=== PATIENT | female | born 1935 | race Caucasian/White ===

== ENCOUNTER 2021-02-10 08:54 | Emergency (ER) | payer MEDICARE ==
[~2021-02-10] VITALS: Ht 170.2 cm; Wt 77.3 kg
--- NOTE | 2021-02-10 09:14 | NUR ---
THIS NURSE PALPATED BILAT KNEES AND HIPS WHILE PATIENT DENIED ANY PAIN TO THESE AREAS. THERE IS TENDERNESS AND SLIGHT BRUISING TO RIGHT TEMPORAL AREA OF HEAD WHERE PATIENT STATES SHE HITHER HEAD ON THE WALL DURING FALL. PATIENT IS UNABLE TO ANSWER SPECIFIC QUESTIONS OR RECALL EVENTS WITH DESCRIPTION. A/0 X 1
[2021-02-10 11:31] VITALS: BP 160/67
== END 2021-02-10 11:34 | disposition home or self-care (01) ==
LOC: ER 08:55
DX: S09.90XA Unspecified injury of head, initial encounter (principal); G30.9 Alzheimer's disease, unspecified; F02.80 Dementia in other diseases classified elsewhere, unspecified severity, without behavioral disturbance, psychotic disturbance, mood disturbance, and anxiety; W19.XXXA Unspecified fall, initial encounter; Y93.89 Activity, other specified; Y92.89 Other specified places as the place of occurrence of the external cause; Y99.8 Other external cause status
CPT/HCPCS: 70450; 70486; 99285

== ENCOUNTER 2021-02-28 16:02 | Emergency (ER) | payer MEDICARE ==
[~2021-02-28] VITALS: Ht 165.1 cm; Wt 84.1 kg
[2021-02-28 17:31] VITALS: BP 188/73
--- NOTE | 2021-02-28 18:46 | NUR ---
PT CONTINES TO ATTEMPT TO [facility]. DIFFICULT TO REDIRECT. CALLING [facility] FOR TRANSPORT PER LUCIEN STERLING.
== END 2021-02-28 20:06 | disposition home or self-care (01) ==
LOC: ER 16:03
DX: S16.1XXA Strain of muscle, fascia and tendon at neck level, initial encounter (principal); S09.90XA Unspecified injury of head, initial encounter; F03.90 Unspecified dementia, unspecified severity, without behavioral disturbance, psychotic disturbance, mood disturbance, and anxiety; W19.XXXA Unspecified fall, initial encounter; Y93.89 Activity, other specified; Y92.89 Other specified places as the place of occurrence of the external cause; Y99.8 Other external cause status
CPT/HCPCS: 70450; 72125; 72128; 72131; 99285

== ENCOUNTER 2021-04-17 09:03 | Inpatient (IN) | payer MEDICARE ==
[2021-04-17] VITALS (12 sets, daily range): BP systolic 134–176; BP diastolic 64–94
[~2021-04-17] VITALS: Ht 165.1 cm; Wt 75.0 kg
--- NOTE | 2021-04-17 09:12 | NUR ---
Dr. Galloway at bedside. Patient is DNR comfort care. Orders not to call stroke alert.
[2021-04-17 09:27] LABS: BASOPHILS # (AUTO) 0.1 X10'3 (0-0.2); BASOPHILS % (AUTO) 1.1 % (0-1); EOSINOPHILS # (AUTO) 0.2 X10'3 (0-0.9); EOSINOPHILS % (AUTO) 2.1 % (0-6); HEMATOCRIT 42.7 % (35.0-45.0); HEMOGLOBIN 14.1 g/dl (12.0-16.0); LYMPHOCYTES % (AUTO) 22.5 % (21-51); MEAN CORPUSCULAR HEMOGLOBIN 28.9 PG (27.0-31.0); MEAN CORPUSCULAR VOLUME 87.8 FL (78-98); MONOCYTES # (AUTO) 1.3 X10'3 (0-0.9); MONOCYTES % (AUTO) 14.2 % (2-12); NEUTROPHILS # (AUTO) 5.5 X10'3 (1.8-7.7); NEUTROPHILS % (AUTO) 60.1 % (42-75); PLATELET COUNT 191 X10'3 (140-440); RED BLOOD COUNT 4.86 X10'6 (4.20-5.60); RED CELL DISTRIBUTION WIDTH 14.5 % (11.5-14.5); WHITE BLOOD COUNT 9.1 X10'3 (4.5-11.0)
[2021-04-17 09:41] LABS: PARTIAL THROMBOPLASTIN TIME 31 SECONDS (22-32)
[2021-04-17 09:49] LABS: ALANINE AMINOTRANSFERASE 15 U/L (12-78); ALBUMIN 3.5 G/DL (3.4-5.0); ALBUMIN/GLOBULIN RATIO 0.9 (1.1-1.5); ALKALINE PHOSPHATASE 105 IU/L (46-116); ASPARTATE AMINO TRANSFERASE 12 U/L (10-37); BILIRUBIN,TOTAL 0.8 MG/DL (0.1-1.0); BLOOD UREA NITROGEN 10 MG/DL (7-18); BUN/CREATININE RATIO 11.2 (6.6-38.0); CALCIUM 9.3 MG/DL (8.5-10.1); CREATININE 0.89 MG/DL (0.40-0.90); GLUCOSE 102 MG/DL (70-104); TOTAL CARBON DIOXIDE 23.8 MMOL/L (24-32); TOTAL PROTEIN 7.4 G/DL (6.4-8.2); eGFR 60 ML/MIN
[2021-04-17] MEDS ORDERED: iohexol 350MG/ML 100ml bottle IV ONE (09:53)
--- NOTE | 2021-04-17 09:54 | NUR ---
Son (rosie) at bedside. States patient would want treatment for potential stroke. Dr. Galloway at bedside. CTA ordered, changed to stat and CT notified. Stroke RN at bedside and aware.
--- NOTE | 2021-04-17 10:20 | NUR ---
Dr. Galloway, son, and stroke RN at bedside. Discussion about plan of care with son. Son understands patient's situation and would like to move forward with stroke treatment. Level 1 stroke alert called.
[2021-04-17 10:42] LABS: ANION GAP 8 (8-16); CHLORIDE 105 MMOL/L (99-107); POTASSIUM 4.1 MMOL/L (3.5-5.1); SODIUM 137 MMOL/L (135-145)
[2021-04-17] MEDS ORDERED: normal saline 50ml IV soln 50 ML IV SCH (10:50)
[2021-04-17] MEDS ORDERED: alteplase 100MG inj. 100 ML IV ONE (10:50)
[2021-04-17 13:06] LABS: HEMOGLOBIN A1C 5.8 % (4.5-6.2)
[2021-04-17] MEDS ORDERED: SERT50TA PO (13:18)
[2021-04-17] MEDS ORDERED: DONE10TA7 PO (13:18)
[2021-04-17] MEDS ORDERED: BISA10SU11 RC (13:18)
[2021-04-17] MEDS ORDERED: FURO-150 PO (13:18)
[2021-04-17] MEDS ORDERED: LEVO75TA PO (13:18)
[2021-04-17] MEDS ORDERED: GLYC-23 RC (13:18)
[2021-04-17] MEDS ORDERED: IBUP-1984 PO (13:18)
[2021-04-17] MEDS ORDERED: QUET50TA24 PO (13:18)
[2021-04-17] MEDS ORDERED: LORA-269 PO (13:18)
[2021-04-17] MEDS ORDERED: CYAN-51 PO (13:18)
[2021-04-17] MEDS ORDERED: CHOL100025 PO (13:18)
[2021-04-17] MEDS ORDERED: METO-539 PO (13:18)
[2021-04-17] MEDS ORDERED: MAGN400O6 PO (13:18)
--- NOTE | 2021-04-17 13:45 | NUR ---
First interaction with pt, neuro check with stroke nurse done at this time. Son in room, continue monitoring closely. Pt void 300cc urine
[2021-04-17 13:55] LABS: CLARITY,URINE CLEAR (Clear); COLOR,URINE YELLOW (Yellow); GLUCOSE, URINE NEGATIVE (Neg); KETONES,URINE NEGATIVE (Neg); LEUKOCYTE ESTERASE ,URINE NEGATIVE (Neg); NITRITES, URINE NEGATIVE (Neg); OCCULT BLOOD,URINE TRACE-INTACT (Neg); PROTEIN,URINE 30 mg/dl (Neg); UA COLLECTION TYPE VOIDED
[2021-04-17] MEDS: normal saline 1000ml 1,000 ML IV SCH ×2 (13:56→15:05)
[2021-04-17 14:01] LABS: BACTERIA,URINE 1+ /HPF (Neg); MUCUS STRANDS NONE SEEN /LPF (Neg); RBC,URINE NONE SEEN /HPF (0-2); SQUAMOUS EPITHELIAL CELL,UR MODERATE /LPF (FEW)
[2021-04-17] MEDS ORDERED: magnesium hydroxide 30ml (MOM) UD suspension PO PRN (14:20)
[2021-04-17] MEDS ORDERED: ipratropium/albuterol 3ml nebule NEB PRN (14:20)
[2021-04-17] MEDS ORDERED: morphine 4 MG/ML inj SYRINge IV PRN (14:20)
[2021-04-17] MEDS ORDERED: LIDOcaine 2% 10ml TOPICAL JELLY (Urojet) TP ONE (14:20)
[2021-04-17] MEDS ORDERED: morphine 2 MG/ML inj. syringe IV PRN (14:20)
[2021-04-17] MEDS ORDERED: acetaminophen 325mg tablet PO PRN (14:20)
[2021-04-17] MEDS ORDERED: ondansetron/PF 4mg/2ml inj IV PRN (14:20)
--- NOTE | 2021-04-17 14:42 | NUR ---
Pt was able to void earlier, refused placement of a Ortiz at this time, Continue monitoring her output
--- NOTE | 2021-04-17 16:30 | NUR ---
PT INCREASED AGITATION ASKING "HELP HELP" THEN UNABLE TO VOID. TURNER PLACED AND DRAIN 500ML. WILL PT'S SON CALLED AND WILL COME SEE MOTHER AND HELP STAY WITH MOTHER.
--- NOTE | 2021-04-17 18:31 | NUR ---
Son at bedside, pt resting and calm. Continue monitoring closely
--- NOTE | 2021-04-17 19:00 | NUR ---
[employer] called and representant explains we have to call ack in the morning for MRI compatibility [phone] Addendum: 04/18/21 at 0130 by JUSTINE [employer] called and representant explains we have to call ack in the morning for MRI compatibility [phone] @ 7am central time
--- NOTE | 2021-04-18 01:10 | NUR ---
Hasmukh Paez number:[phone]
--- NOTE | 2021-04-18 01:19 | NUR ---
Julieta Stroke RN number: [phone]
--- NOTE | 2021-04-18 01:20 | NUR ---
Per Krish ceballos, ICU refused pt. Charge Nurse Mary notified and advice to call Md Hospitalist. Md Aguiar called conserning ICU bed waiting for pt explained he is not in charge of downgrading pt level. Charge Nurse notified and ICU md will be contact.
--- NOTE | 2021-04-18 01:26 | NUR ---
ICU Md Valdivia comfirmed pt still under ICU due to less than 24hr TPA administration. Continue monitoring in ED at this time.
--- NOTE | 2021-04-18 01:30 | NUR ---
Gear Keeper Shea states pt must remain an ICU patient due to Tpa having been administered within the past 24 hours
[2021-04-18] MEDS: normal saline 1000ml 1,000 ML IV SCH ×5 (02:29→20:41)
--- NOTE | 2021-04-18 05:46 | NUR ---
[employer] states pt's. implanted device NOT compatible with MRI exam
[2021-04-18 08:07] LABS: BASOPHILS # (AUTO) 0.1 X10'3 (0-0.2); EOSINOPHILS # (AUTO) 0.1 X10'3 (0-0.9); EOSINOPHILS % (AUTO) 1.1 % (0-6); HEMATOCRIT 42.4 % (35.0-45.0); LYMPHOCYTES # (AUTO) 1.2 X10'3 (1.1-4.8); LYMPHOCYTES % (AUTO) 11.8 % (21-51); MEAN CORPUSCULAR HEMOGLOBIN 29.1 PG (27.0-31.0); MEAN CORPUSCULAR HGB CONC 33.1 g/dL (33.0-36.5); MEAN CORPUSCULAR VOLUME 87.8 FL (78-98); MEAN PLATELET VOLUME 9.1 FL (7.4-10.4); MONOCYTES % (AUTO) 9.9 % (2-12); NEUTROPHILS # (AUTO) 7.8 X10'3 (1.8-7.7); NEUTROPHILS % (AUTO) 76.2 % (42-75); PLATELET COUNT 184 X10'3 (140-440); RED BLOOD COUNT 4.83 X10'6 (4.20-5.60); WHITE BLOOD COUNT 10.3 X10'3 (4.5-11.0)
[2021-04-18 08:24] LABS: ALBUMIN 3.4 G/DL (3.4-5.0); ANION GAP 11 (8-16); BLOOD UREA NITROGEN 11 MG/DL (7-18); BUN/CREATININE RATIO 13.1 (6.6-38.0); CHLORIDE 103 MMOL/L (99-107); CHOL/HDL RATIO 11.2 (0.00-4.99); CHOLESTEROL 325 MG/DL (0-200); CREATININE 0.84 MG/DL (0.40-0.90); GLUCOSE 90 MG/DL (70-104); HDL CHOLESTEROL 29 MG/DL (35-60); LDL CHOLESTEROL 264 MG/DL (50-100); POTASSIUM 3.9 MMOL/L (3.5-5.1); SODIUM 139 MMOL/L (135-145); TRIGLYCERIDES 113 MG/DL (20-135); eGFR 64 ML/MIN
--- NOTE | 2021-04-18 10:10 | NUR ---
VERBAL ORDER FOR CT HEAD POST STROKE PT IN NOT ABLE TO HAVE MRI D/T PACEMAKER ORDER BY DR ACE
--- NOTE | 2021-04-18 10:36 | NUR ---
Stroke Nurse evaluated patient at bedside. Teleneurology paged for re-evaluation post TPA. CT of head has been done.
--- NOTE | 2021-04-18 10:38 | NUR ---
ORDER FOR SOC PLACED FOR POST STROKE RECOMENDATIONS. REQUESTED BY JAVY THE STROKE NURSE
--- NOTE | 2021-04-18 10:45 | NUR ---
Discuss recommendation for secondary prevention with Dr Sifuentes, note to follow patient can go up to the stroke unit after 24 hours post tpa which is at [address] Tolliver notified.
[2021-04-18] MEDS: levoTHYROXINE 75mcg tablet PO SCH (11:15)
[2021-04-18] MEDS: metoprolol succinate 25mg (24-HOUR) SR. Tablet PO SCH ×2 (11:15→20:45)
--- NOTE | 2021-04-18 11:24 | NUR ---
PHYSICAL THERAPY AT BEDSIDE
--- NOTE | 2021-04-18 11:32 | NUR ---
PT AWAKE FROM NAP. WILL HOLD MEDS UNTIL PT IS AWAKE ENOUGH TO GIVE MEDS.
--- NOTE | 2021-04-18 12:05 | NUR ---
Bruising from blood pressure cuff observed on left arm. blood pressure cuff switched to right forearm.
--- NOTE | 2021-04-18 12:12 | NUR ---
PER NSG SUP PAGE TO DR GARBER RE: PT DOWNGRADED FROM ICU AND INQUIRING ABOUT HOSPITAL ADMIT ORDERS
--- NOTE | 2021-04-18 12:59 | NUR ---
2ND PAGE TO JCARLOS RE ADMIT
--- NOTE | 2021-04-18 14:47 | NUR ---
SCD'S PLACE ON PATIENT AT THIS TIME. Addendum: 04/18/21 at 1448 by Julieta Cabrales RN Amended: Links added.
[2021-04-18] MEDS: aspirin 81mg tab.chew PO SCH (17:29)
[2021-04-18] MEDS: clopidogrel 75mg tablet PO SCH (17:29)
--- NOTE | 2021-04-18 19:20 | NUR ---
Received report from Herman LAKHANI from ED. Patient brought up to the floor on a hospital bed. Bed placed in locked & low position. Call light placed within reach.
[2021-04-18 19:25] VITALS: BP 182/73
[2021-04-18 22:00] VITALS: BP 128/82
[2021-04-19 02:00] VITALS: BP 159/76
--- NOTE | 2021-04-19 02:13 | NUR ---
Patient started coughing and went into room and patient was gurgling and started vomiting. Patient up at 45 degrees. Placed patient at 90 degrees and attempted to suction but patient biting the suction. Patient's oxygen saturation at 99% RA. Will make NPO and allow speech therapy to reevaluate patient. Patient also pulled out Ortiz catheter with balloon intact. Will monitor for a void.
--- NOTE | 2021-04-19 05:41 | NUR ---
Patient has not voided. Bladder scanned patient and results showed 35mls. Will encourage patient to void.
[2021-04-19 06:00] VITALS: BP 160/86
--- NOTE | 2021-04-19 06:44 | NUR ---
Problems reprioritized. Patient report given, questions answered & plan of care reviewed with Kaitlin LAKHANI.
[2021-04-19 07:00] LABS: BASOPHILS # (AUTO) 0.1 X10'3 (0-0.2); EOSINOPHILS % (AUTO) 0.3 % (0-6); HEMATOCRIT 42.3 % (35.0-45.0); LYMPHOCYTES # (AUTO) 1.6 X10'3 (1.1-4.8); LYMPHOCYTES % (AUTO) 13.5 % (21-51); MEAN CORPUSCULAR HEMOGLOBIN 28.4 PG (27.0-31.0); MEAN CORPUSCULAR HGB CONC 33.2 g/dL (33.0-36.5); MEAN CORPUSCULAR VOLUME 85.7 FL (78-98); MEAN PLATELET VOLUME 9.3 FL (7.4-10.4); MONOCYTES # (AUTO) 1.1 X10'3 (0-0.9); MONOCYTES % (AUTO) 9.5 % (2-12); NEUTROPHILS # (AUTO) 9.2 X10'3 (1.8-7.7); NEUTROPHILS % (AUTO) 75.7 % (42-75); PLATELET COUNT 233 X10'3 (140-440); RED BLOOD COUNT 4.93 X10'6 (4.20-5.60); RED CELL DISTRIBUTION WIDTH 14.3 % (11.5-14.5); WHITE BLOOD COUNT 12.1 X10'3 (4.5-11.0)
[2021-04-19 07:10] LABS: GLUCOSE 94 MG/DL (70-104); SODIUM 139 MMOL/L (135-145)
[2021-04-19 07:11] LABS: ALBUMIN 3.2 G/DL (3.4-5.0); ANION GAP 12 (8-16); BLOOD UREA NITROGEN 12 MG/DL (7-18); BUN/CREATININE RATIO 13.5 (6.6-38.0); CALCIUM 8.7 MG/DL (8.5-10.1); CHLORIDE 105 MMOL/L (99-107); CREATININE 0.89 MG/DL (0.40-0.90); POTASSIUM 3.8 MMOL/L (3.5-5.1); TOTAL CARBON DIOXIDE 22.4 MMOL/L (24-32); eGFR 60 ML/MIN
[2021-04-19] MEDS: clopidogrel 75mg tablet PO SCH (08:00)
[2021-04-19] MEDS: atorvastatin 20mg tablet PO SCH (08:00)
[2021-04-19] MEDS: metoprolol succinate 25mg (24-HOUR) SR. Tablet PO SCH ×2 (08:00→20:29)
[2021-04-19] MEDS: levoTHYROXINE 75mcg tablet PO SCH (08:00)
--- NOTE | 2021-04-19 08:04 | NUR ---
PAGER ID: [phone] MESSAGE: Kaitlin Oliveros9 marisol Bond in [id number]- vomiting this am, concern for aspiration. CXR? ST made her NPO again. on asa, Plavix, Lipitor. Please advise, thanks Addendum: 04/19/21 at 0837 by Samantha Maguire RN Spoke to Dr Benton. He ordered CXR, respiratory eval, and rectal aspirin.
[2021-04-19] MEDS: aspirin 81mg tab.chew PO SCH (08:30)
[2021-04-19] MEDS ORDERED: aspirin 300mg supp.rect RC ONE (08:40)
--- NOTE | 2021-04-19 08:46 | NUR ---
Dean consult. No open wound per RN note. Pt seen by ST today, rec NPO. Pt on comfort care, will continue to follow. Rec: Bowel care per rx Addendum: 04/19/21 at [address] Amended: Links added.
[2021-04-19 10:00] VITALS: BP 156/73
[2021-04-19] MEDS: normal saline 1000ml 1,000 ML IV SCH ×2 (12:13→23:39)
--- NOTE | 2021-04-19 16:39 | NUR ---
call to [employer] to request interrogation of pacemaker. Per notes Neurologist recommended loop recorder to assess for poss afib. Addendum: 04/19/21 at 1648 by Samantha Maguire RN Kaitlin with [employer] will be here shortly to interrogate PM to assess for afib. Pt not on tele
--- NOTE | 2021-04-19 17:35 | NUR ---
[employer] rep states that she is unable to read pt's PM. Either it has been replaced by another device or it is not functioning. She ran a magnet over it and said that it changed the rate, therefore there must be a PM that is functioning, but it is not a [employer] device. She gave me the number to call [facility] and they also have no record of the PM.
--- NOTE | 2021-04-19 17:56 | NUR ---
pt is more alert. I sat her up in high fowlers and the pt was able to take small bites of pureed and swallow effectively (although it is very slow and delayed). Pt was able to take small sips thin liquids from the side of the cup with no apparent difficulty.
[2021-04-19 18:00] VITALS: BP 178/81
--- NOTE | 2021-04-19 18:21 | NUR ---
PAGER ID: [phone] MESSAGE: Kaitlin [id number] Mary Edward- neurologist recommended loop recorder, to look for afib, has PM that I cant interrogate, can we put on tele?
--- NOTE | 2021-04-19 18:30 | NUR ---
Patient in room ORTHO 4009. I have received report from Kaitlin LAKHANI and had the opportunity to ask questions and assume patient care.
[2021-04-19 22:00] VITALS: BP 188/80
[2021-04-20] MEDS ORDERED: hydrALAZINE 20mg/ml inj. IV PRN (00:25)
--- NOTE | 2021-04-20 00:25 | NUR ---
Called MD about higher BP's. Hydralazine ordered PRN for BP over 170/100 but patient does not meet requirements at this time. Will continue to monitor BP
[2021-04-20 02:00] VITALS: BP 184/75
--- NOTE | 2021-04-20 05:17 | NUR ---
Patient has not voided this shift, bladder scanner shows 360ml. Encouraging patient to sit on the bedpan.
[2021-04-20 06:00] VITALS: BP 176/73
--- NOTE | 2021-04-20 06:04 | NUR ---
Problems reprioritized. Patient report given, questions answered & plan of care reviewed with Nidia LAKHANI.
--- NOTE | 2021-04-20 06:29 | NUR ---
Patient in room ORTHO 4009. I have received report from Annamaria LAKHANI and had the opportunity to ask questions and assume patient care.
[2021-04-20 07:58] LABS: BASOPHILS # (AUTO) 0.1 X10'3 (0-0.2); BASOPHILS % (AUTO) 0.9 % (0-1); EOSINOPHILS # (AUTO) 0.2 X10'3 (0-0.9); EOSINOPHILS % (AUTO) 2.4 % (0-6); HEMOGLOBIN 13.2 g/dl (12.0-16.0); LYMPHOCYTES # (AUTO) 1.7 X10'3 (1.1-4.8); MEAN CORPUSCULAR HEMOGLOBIN 28.5 PG (27.0-31.0); MEAN CORPUSCULAR VOLUME 86.3 FL (78-98); MEAN PLATELET VOLUME 9.1 FL (7.4-10.4); MONOCYTES # (AUTO) 1.1 X10'3 (0-0.9); MONOCYTES % (AUTO) 11.7 % (2-12); NEUTROPHILS # (AUTO) 6.2 X10'3 (1.8-7.7); PLATELET COUNT 228 X10'3 (140-440); RED BLOOD COUNT 4.64 X10'6 (4.20-5.60); RED CELL DISTRIBUTION WIDTH 14.6 % (11.5-14.5); WHITE BLOOD COUNT 9.2 X10'3 (4.5-11.0)
[2021-04-20] MEDS: metoprolol succinate 25mg (24-HOUR) SR. Tablet PO SCH ×2 (08:05→19:37)
[2021-04-20] MEDS: clopidogrel 75mg tablet PO SCH (08:05)
[2021-04-20] MEDS: atorvastatin 20mg tablet PO SCH (08:06)
[2021-04-20] MEDS: aspirin 81mg tab.chew PO SCH (08:06)
[2021-04-20] MEDS: levoTHYROXINE 75mcg tablet PO SCH (08:06)
[2021-04-20 08:19] LABS: ALBUMIN 2.9 G/DL (3.4-5.0); ANION GAP 11 (8-16); BLOOD UREA NITROGEN 13 MG/DL (7-18); CALCIUM 8.6 MG/DL (8.5-10.1); CHLORIDE 107 MMOL/L (99-107); CREATININE 0.81 MG/DL (0.40-0.90); GLUCOSE 78 MG/DL (70-104); POTASSIUM 3.7 MMOL/L (3.5-5.1); SODIUM 142 MMOL/L (135-145); TOTAL CARBON DIOXIDE 24.2 MMOL/L (24-32); eGFR 67 ML/MIN
[2021-04-20] MEDS: normal saline 1000ml 1,000 ML IV SCH ×2 (09:00→13:29)
[2021-04-20 10:00] VITALS: BP 180/89
[2021-04-20] MEDS ORDERED: amLODIPine 5mg tablet PO ONE (10:50)
--- NOTE | 2021-04-20 15:31 | NUR ---
Pt transferred to commode 2 person assist five times this shift. Pt requires repeated coaching but does very well transferring. Pt is visibly frustrated with current health condition however nursing staff, MD, and family continue to encourage her. Patient has has poor nutrition today, 0% breakfast, 25% lunch. Will continue to reposition and encourage better nutrition.
[2021-04-20 18:00] VITALS: BP 112/76
--- NOTE | 2021-04-20 18:33 | NUR ---
Problems reprioritized. Patient report given, questions answered & plan of care reviewed with Annamaria LAKHANI.
--- NOTE | 2021-04-20 18:35 | NUR ---
Patient in room ORTHO 4009. I have received report from Nidia LAKHANI and had the opportunity to ask questions and assume patient care.
[2021-04-20 22:00] VITALS: BP 149/76
[2021-04-21] MEDS: normal saline 1000ml 1,000 ML IV SCH ×2 (01:34→15:27)
[2021-04-21 02:00] VITALS: BP 174/80
[2021-04-21 06:30] VITALS: BP 176/73
--- NOTE | 2021-04-21 06:47 | NUR ---
Problems reprioritized. Patient report given, questions answered & plan of care reviewed with Debby LAKHANI.
--- NOTE | 2021-04-21 07:45 | NUR ---
Notified Charge Nurse patient will need NIH completed by her this shift.
[2021-04-21] MEDS: amLODIPine 5mg tablet PO SCH (08:00)
[2021-04-21] MEDS: clopidogrel 75mg tablet PO SCH (08:00)
[2021-04-21] MEDS: levoTHYROXINE 75mcg tablet PO SCH (08:00)
[2021-04-21] MEDS: atorvastatin 20mg tablet PO SCH (08:00)
[2021-04-21] MEDS: metoprolol succinate 25mg (24-HOUR) SR. Tablet PO SCH ×3 (08:00→21:00)
[2021-04-21] MEDS: aspirin 81mg tab.chew PO SCH (08:30)
--- NOTE | 2021-04-21 08:52 | NUR ---
Patient refused all morning medications, encouraged and education completed with patient. Patient still states that she doesn't want to take the medications, she just wants this to be all over. Patient states that the doctor doesn't know what he is doing and wants this to be all over with.
[2021-04-21 10:00] VITALS: BP 162/80
[2021-04-21 11:18] LABS: ALBUMIN 3.2 G/DL (3.4-5.0); ANION GAP 13 (8-16); BLOOD UREA NITROGEN 9 MG/DL (7-18); BUN/CREATININE RATIO 12.9 (6.6-38.0); CALCIUM 8.7 MG/DL (8.5-10.1); CHLORIDE 104 MMOL/L (99-107); GLUCOSE 97 MG/DL (70-104); POTASSIUM 3.5 MMOL/L (3.5-5.1); SODIUM 139 MMOL/L (135-145); eGFR 79 ML/MIN
[2021-04-21 11:26] LABS: BASOPHILS # (AUTO) 0.1 X10'3 (0-0.2); BASOPHILS % (AUTO) 1.1 % (0-1); EOSINOPHILS # (AUTO) 0.1 X10'3 (0-0.9); EOSINOPHILS % (AUTO) 0.9 % (0-6); HEMATOCRIT 39.8 % (35.0-45.0); HEMOGLOBIN 13.1 g/dl (12.0-16.0); LYMPHOCYTES # (AUTO) 1.5 X10'3 (1.1-4.8); LYMPHOCYTES % (AUTO) 14.6 % (21-51); MEAN CORPUSCULAR HEMOGLOBIN 28.4 PG (27.0-31.0); MEAN CORPUSCULAR HGB CONC 32.9 g/dL (33.0-36.5); MEAN CORPUSCULAR VOLUME 86.4 FL (78-98); MEAN PLATELET VOLUME 9.3 FL (7.4-10.4); MONOCYTES # (AUTO) 1.1 X10'3 (0-0.9); MONOCYTES % (AUTO) 11.2 % (2-12); NEUTROPHILS # (AUTO) 7.3 X10'3 (1.8-7.7); NEUTROPHILS % (AUTO) 72.2 % (42-75); PLATELET COUNT 238 X10'3 (140-440); RED CELL DISTRIBUTION WIDTH 14.1 % (11.5-14.5); WHITE BLOOD COUNT 10.1 X10'3 (4.5-11.0)
[2021-04-21] MEDS ORDERED: normal saline 50 ML solution ONE (14:00)
[2021-04-21] MEDS ORDERED: sod chloride 0.9% 10ml flush syringe IV ONE (14:00)
[2021-04-21 17:26] VITALS: BP 155/85
--- NOTE | 2021-04-21 18:25 | NUR ---
Problems reprioritized. Patient report given, questions answered & plan of care reviewed with Bouchra LAKHANI.
[2021-04-21 18:30] VITALS: BP 149/72
--- NOTE | 2021-04-21 18:30 | NUR ---
Assumed care of pt received report from Debby LAKHANI.
[2021-04-21] MEDS: acetaminophen 325mg tablet PO PRN (21:00)
[2021-04-21 22:00] VITALS: BP 162/64
[2021-04-22] MEDS: normal saline 1000ml 1,000 ML IV SCH (03:34)
--- NOTE | 2021-04-22 06:15 | NUR ---
received report from jennifer alaniz
--- NOTE | 2021-04-22 06:31 | NUR ---
Report to Corrina LAKHANI.
[2021-04-22 06:51] VITALS: BP 167/81
[2021-04-22 07:08] LABS: BASOPHILS # (AUTO) 0.1 X10'3 (0-0.2); EOSINOPHILS # (AUTO) 0.1 X10'3 (0-0.9); EOSINOPHILS % (AUTO) 1.3 % (0-6); HEMATOCRIT 38.5 % (35.0-45.0); LYMPHOCYTES # (AUTO) 1.1 X10'3 (1.1-4.8); LYMPHOCYTES % (AUTO) 12.2 % (21-51); MEAN CORPUSCULAR HEMOGLOBIN 29.1 PG (27.0-31.0); MEAN CORPUSCULAR HGB CONC 33.7 g/dL (33.0-36.5); MEAN CORPUSCULAR VOLUME 86.4 FL (78-98); NEUTROPHILS # (AUTO) 6.9 X10'3 (1.8-7.7); NEUTROPHILS % (AUTO) 74.5 % (42-75); PLATELET COUNT 219 X10'3 (140-440); RED BLOOD COUNT 4.46 X10'6 (4.20-5.60); RED CELL DISTRIBUTION WIDTH 14.4 % (11.5-14.5); WHITE BLOOD COUNT 9.2 X10'3 (4.5-11.0)
[2021-04-22] MEDS: clopidogrel 75mg tablet PO SCH (07:44)
[2021-04-22] MEDS: metoprolol succinate 25mg (24-HOUR) SR. Tablet PO SCH ×2 (07:44→20:41)
[2021-04-22] MEDS: aspirin 81mg tab.chew PO SCH (07:44)
[2021-04-22] MEDS: atorvastatin 20mg tablet PO SCH (07:45)
[2021-04-22] MEDS: amLODIPine 5mg tablet PO SCH (07:45)
[2021-04-22] MEDS: acetaminophen 325mg tablet PO PRN ×2 (07:46→20:41)
[2021-04-22] MEDS: levoTHYROXINE 75mcg tablet PO SCH (07:47)
--- NOTE | 2021-04-22 07:50 | NUR ---
NOT ALL AM MEDS SCANNED INTO [employer], CHECKED ALL MEDS PRIOR TO ADMIN, CONTINUE TO MONITOR
[2021-04-22 08:05] LABS: ANION GAP 16 (8-16); BLOOD UREA NITROGEN 8 MG/DL (7-18); BUN/CREATININE RATIO 11.6 (6.6-38.0); CALCIUM 8.3 MG/DL (8.5-10.1); CHLORIDE 106 MMOL/L (99-107); CREATININE 0.69 MG/DL (0.40-0.90); GLUCOSE 99 MG/DL (70-104); POTASSIUM 3.2 MMOL/L (3.5-5.1); SODIUM 142 MMOL/L (135-145); TOTAL CARBON DIOXIDE 20.2 MMOL/L (24-32); eGFR 81 ML/MIN
[2021-04-22] MEDS ORDERED: amLODIPine 5mg tablet PO ONE (08:25)
[2021-04-22 09:57] VITALS: BP 163/73
[2021-04-22] MEDS ORDERED: POTASSIUM BICARB 20meq eff tab 20 MEQ TABLET.EFF PO PRN (10:30)
[2021-04-22] MEDS: POTASSIUM BICARB 20meq eff tab 20 MEQ TABLET.EFF PO PRN (10:46)
--- NOTE | 2021-04-22 13:31 | NUR ---
ATTEMPTED TO ADMIN ANOTHER K FOR PT K OF 3.2, PT IS CURRENTLY REFUSING TO TAKE HER K AT THIS TIME, MD AWARE OF PT REFUSING TO TAKE HER K Addendum: 04/22/21 at 1352 by Carrie Grissom RN DID NOT THINK IT WAS NECESSARY AT THIS TIME TO REPLACE PT K W/IV K, CONTINUE TO MONITOR
--- NOTE | 2021-04-22 18:16 | NUR ---
gave report to jennifer alaniz
--- NOTE | 2021-04-22 18:30 | NUR ---
Received Report from Corrina LAKHANI.
[2021-04-22 19:06] VITALS: BP 109/69
[2021-04-22 22:00] VITALS: BP 146/53
[2021-04-23 06:00] VITALS: BP 147/60
--- NOTE | 2021-04-23 06:15 | NUR ---
received report from jennifer alaniz
[2021-04-23 08:23] LABS: BASOPHILS # (AUTO) 0.1 X10'3 (0-0.2); BASOPHILS % (AUTO) 0.7 % (0-1); EOSINOPHILS % (AUTO) 0.4 % (0-6); HEMATOCRIT 39.8 % (35.0-45.0); HEMOGLOBIN 13.2 g/dl (12.0-16.0); LYMPHOCYTES # (AUTO) 1.3 X10'3 (1.1-4.8); LYMPHOCYTES % (AUTO) 11.7 % (21-51); MEAN CORPUSCULAR HEMOGLOBIN 28.5 PG (27.0-31.0); MEAN CORPUSCULAR HGB CONC 33.1 g/dL (33.0-36.5); MEAN PLATELET VOLUME 8.6 FL (7.4-10.4); MONOCYTES # (AUTO) 1.2 X10'3 (0-0.9); MONOCYTES % (AUTO) 10.7 % (2-12); NEUTROPHILS # (AUTO) 8.7 X10'3 (1.8-7.7); NEUTROPHILS % (AUTO) 76.5 % (42-75); PLATELET COUNT 226 X10'3 (140-440); RED BLOOD COUNT 4.62 X10'6 (4.20-5.60); RED CELL DISTRIBUTION WIDTH 14.3 % (11.5-14.5); WHITE BLOOD COUNT 11.3 X10'3 (4.5-11.0)
[2021-04-23] MEDS: clopidogrel 75mg tablet PO SCH (08:35)
[2021-04-23] MEDS: aspirin 81mg tab.chew PO SCH (08:35)
[2021-04-23 08:36] LABS: ALBUMIN 2.9 G/DL (3.4-5.0); ANION GAP 10 (8-16); BLOOD UREA NITROGEN 10 MG/DL (7-18); BUN/CREATININE RATIO 14.3 (6.6-38.0); CALCIUM 8.7 MG/DL (8.5-10.1); CHLORIDE 104 MMOL/L (99-107); GLUCOSE 87 MG/DL (70-104); POTASSIUM 3.1 MMOL/L (3.5-5.1); SODIUM 138 MMOL/L (135-145); eGFR 79 ML/MIN
[2021-04-23] MEDS: levoTHYROXINE 75mcg tablet PO SCH (08:36)
[2021-04-23] MEDS: metoprolol succinate 25mg (24-HOUR) SR. Tablet PO SCH ×2 (08:37→19:56)
[2021-04-23] MEDS: atorvastatin 20mg tablet PO SCH (08:37)
[2021-04-23] MEDS: amLODIPine 5mg tablet PO SCH (08:38)
--- NOTE | 2021-04-23 09:18 | NUR ---
not all am medications scanned into [employer] checked all meds prior to admin
--- NOTE | 2021-04-23 09:55 | NUR ---
PT IS REFUSING TO TAKE HER K REPLACEMENT, AWARE, CONTINUE TO MONITOR
[2021-04-23 10:00] VITALS: BP 166/67
--- NOTE | 2021-04-23 14:29 | NUR ---
Initial: Pt previously comfort care however now DNR in EMR. 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 Placed on pureed/thin diet w/ poor PO 0-25% meals past 5 days not meeting needs. Noted regular diet placed by RN today since pt refusing to eat pureed foods at this time. RD recommended f/u FEATURES REPORTER BSS for appropriate texture/liquid modifications; MD notified. Since pt refusing pureed foods will send soft to chew foods w/ ground meats in meantime since closest texture modification to pureed until pt seen by FEATURES REPORTER again. Given poor PO intake hx RD recommends ensure enlive TIDWM; MD notified. LBM 04/20. Noted pt -7kg one day both via standing scaled wts w/ no significant change in fluid balance likely error. Will continue to monitor for PO trends and acceptance this admit. Rec: 1. continue regular diet; soft to chew w/ grind meats pending f/u FEATURES REPORTER BSS since pt refusing pureed meals at this time 2. ensure enlive TIDWM; pending MD verification in EMR 3. routine bowel care 4. weekly wts Addendum: 04/23/21 at [address] Amended: Links added.
[2021-04-23 18:00] VITALS: BP 187/75
[2021-04-23] MEDS: lactose-reduced food (Ensure Enlive) - 237ml bottle PO SCH (18:00)
--- NOTE | 2021-04-23 18:14 | NUR ---
GAVE REPORT TO KAR TIRADO
[2021-04-23 20:00] VITALS: BP 177/67
[2021-04-23] MEDS: POTASSIUM BICARB 20meq eff tab 20 MEQ TABLET.EFF PO PRN (20:02)
[2021-04-23 22:00] VITALS: BP 160/78
[2021-04-24 06:00] VITALS: BP 158/74
--- NOTE | 2021-04-24 06:35 | NUR ---
Patient in room ORTHO 4009. I have received report from KAR Elizabeth and had the opportunity to ask questions and assume patient care.
[2021-04-24 06:40] LABS: ALBUMIN 2.9 G/DL (3.4-5.0); ANION GAP 10 (8-16); BLOOD UREA NITROGEN 11 MG/DL (7-18); BUN/CREATININE RATIO 16.4 (6.6-38.0); CALCIUM 8.4 MG/DL (8.5-10.1); CHLORIDE 101 MMOL/L (99-107); CREATININE 0.67 MG/DL (0.40-0.90); GLUCOSE 97 MG/DL (70-104); POTASSIUM 3.1 MMOL/L (3.5-5.1); SODIUM 135 MMOL/L (135-145); TOTAL CARBON DIOXIDE 23.6 MMOL/L (24-32); eGFR 83 ML/MIN
[2021-04-24 06:52] LABS: BASOPHILS # (AUTO) 0.1 X10'3 (0-0.2); BASOPHILS % (AUTO) 0.6 % (0-1); EOSINOPHILS # (AUTO) 0.1 X10'3 (0-0.9); EOSINOPHILS % (AUTO) 0.8 % (0-6); HEMATOCRIT 38.9 % (35.0-45.0); HEMOGLOBIN 13.1 g/dl (12.0-16.0); LYMPHOCYTES # (AUTO) 1.3 X10'3 (1.1-4.8); LYMPHOCYTES % (AUTO) 11.6 % (21-51); MEAN CORPUSCULAR HGB CONC 33.7 g/dL (33.0-36.5); MEAN CORPUSCULAR VOLUME 86.2 FL (78-98); MEAN PLATELET VOLUME 9.2 FL (7.4-10.4); MONOCYTES # (AUTO) 1.4 X10'3 (0-0.9); MONOCYTES % (AUTO) 12.7 % (2-12); NEUTROPHILS # (AUTO) 8.4 X10'3 (1.8-7.7); NEUTROPHILS % (AUTO) 74.3 % (42-75); PLATELET COUNT 230 X10'3 (140-440); RED BLOOD COUNT 4.52 X10'6 (4.20-5.60); RED CELL DISTRIBUTION WIDTH 14.3 % (11.5-14.5); WHITE BLOOD COUNT 11.3 X10'3 (4.5-11.0)
[2021-04-24] MEDS: metoprolol succinate 25mg (24-HOUR) SR. Tablet PO SCH (08:00)
[2021-04-24] MEDS: lactose-reduced food (Ensure Enlive) - 237ml bottle PO SCH ×2 (08:00→13:23)
[2021-04-24] MEDS: atorvastatin 20mg tablet PO SCH (08:57)
[2021-04-24] MEDS: clopidogrel 75mg tablet PO SCH (08:59)
[2021-04-24] MEDS: aspirin 81mg tab.chew PO SCH (08:59)
[2021-04-24] MEDS: levoTHYROXINE 75mcg tablet PO SCH (09:02)
[2021-04-24] MEDS ORDERED: lisinopril 20mg tablet PO SCH (09:15)
[2021-04-24] MEDS: POTASSIUM BICARB 20meq eff tab 20 MEQ TABLET.EFF PO PRN ×2 (09:42→14:19)
[2021-04-24] MEDS: amLODIPine 5mg tablet PO SCH (09:48)
[2021-04-24 10:16] VITALS: BP 165/70
[2021-04-24] MEDS ORDERED: CLOP75TA34 PO (11:28)
[2021-04-24] MEDS ORDERED: ASPI81TA53 PO (11:28)
[2021-04-24] MEDS ORDERED: ATOR20TA66 PO (11:28)
[2021-04-24] MEDS ORDERED: NOR5T PO (11:28)
[2021-04-24] MEDS ORDERED: LISI20TA28 PO (11:28)
--- NOTE | 2021-04-24 15:21 | NUR ---
Pt discharged to [facility]. Report called in to [facility]. [facility] ambulance. Tele removed. 20g PIV removed from (L) hand without issue, tip intact. Pt left in stable condition.
== END 2021-04-24 14:42 | DRG 63 ==
LOC: ER 09:03 → ED HOLD 14:16 → ORTHO 4S 04-18 19:20
PROVIDERS: ADMIT Surgery Surgical Critical Care; ATTEND Surgery Surgical Critical Care
PROC: 3E03317 Introduction of Other Thrombolytic into Peripheral Vein, Percutaneous Approach (ICD-10-PCS; principal; 2021-04-17)
PROC: B3251ZZ Computerized Tomography (CT Scan) of Bilateral Common Carotid Arteries using Low Osmolar Contrast (ICD-10-PCS; 2021-04-17)
PROC: B32G1ZZ Computerized Tomography (CT Scan) of Bilateral Vertebral Arteries using Low Osmolar Contrast (ICD-10-PCS; 2021-04-17)
PROC: B32R1ZZ Computerized Tomography (CT Scan) of Intracranial Arteries using Low Osmolar Contrast (ICD-10-PCS; 2021-04-17)
PROC: B3281ZZ Computerized Tomography (CT Scan) of Bilateral Internal Carotid Arteries using Low Osmolar Contrast (ICD-10-PCS; 2021-04-17)
DX: I63.9 Cerebral infarction, unspecified (principal); F02.80 Dementia in other diseases classified elsewhere, unspecified severity, without behavioral disturbance, psychotic disturbance, mood disturbance, and anxiety; G30.9 Alzheimer's disease, unspecified; R47.01 Aphasia; Z20.822 Contact with and (suspected) exposure to COVID-19; R29.720 NIHSS score 20; E03.9 Hypothyroidism, unspecified; I10 Essential (primary) hypertension; E78.5 Hyperlipidemia, unspecified; R13.0 Aphagia; Z66 Do not resuscitate; Z51.5 Encounter for palliative care; M79.644 Pain in right finger(s); R47.1 Dysarthria and anarthria; Z79.899 Other long term (current) drug therapy; Z79.82 Long term (current) use of aspirin; Z79.890 Hormone replacement therapy
CPT/HCPCS: 36415; 70450; 70496; 70498; 71045; 73130; 80048; 80053; 80061; 81001; 82948; 83036; 84443; 85025; 85610; 85730; 87081; 87088; 87635; 92508; 92616; 93005; 93306; 94760; 96374; 97110; 97112; 97116; 97162; 97530; 99285; G0378; J0360; J2405; J2997; J7030; Q9967

== ENCOUNTER 2021-06-11 10:42 | Inpatient (IN) | payer MEDICARE ==
[~2021-06-11] VITALS: Ht 167.6 cm; Wt 72.7 kg
[~2021-06-11 10:42] MED LIST: ASPI81TA53 PO; ATOR20TA66 PO; CLOP75TA34 PO; LEVO75TA PO; LISI20TA28 PO; METO-539 PO; NOR5T PO
[2021-06-11] MEDS ORDERED: normal saline 1000ML IV soln IVB ONE ×2 (11:40)
[2021-06-11 12:14] LABS: BASOPHILS # (AUTO) 0.1 X10'3 (0-0.2); BASOPHILS % (AUTO) 0.6 % (0-1); EOSINOPHILS # (AUTO) 0.1 X10'3 (0-0.9); EOSINOPHILS % (AUTO) 0.7 % (0-6); HEMOGLOBIN 12.3 g/dl (12.0-16.0); LYMPHOCYTES # (AUTO) 1.4 X10'3 (1.1-4.8); LYMPHOCYTES % (AUTO) 9.3 % (21-51); MEAN CORPUSCULAR HEMOGLOBIN 28.4 PG (27.0-31.0); MEAN CORPUSCULAR HGB CONC 32.2 g/dL (33.0-36.5); MEAN CORPUSCULAR VOLUME 88.1 FL (78-98); MEAN PLATELET VOLUME 9.9 FL (7.4-10.4); MONOCYTES % (AUTO) 6.5 % (2-12); NEUTROPHILS # (AUTO) 12.2 X10'3 (1.8-7.7); NEUTROPHILS % (AUTO) 82.9 % (42-75); PLATELET COUNT 208 X10'3 (140-440); RED BLOOD COUNT 4.31 X10'6 (4.20-5.60); RED CELL DISTRIBUTION WIDTH 16.5 % (11.5-14.5); WHITE BLOOD COUNT 14.7 X10'3 (4.5-11.0)
[2021-06-11 12:31] LABS: ALANINE AMINOTRANSFERASE 16 U/L (12-78); ALBUMIN 3.1 G/DL (3.4-5.0); ALBUMIN/GLOBULIN RATIO 0.9 (1.1-1.5); ALKALINE PHOSPHATASE 104 IU/L (46-116); ANION GAP 10 (8-16); ASPARTATE AMINO TRANSFERASE 17 U/L (10-37); BILIRUBIN,TOTAL 0.6 MG/DL (0.1-1.0); BLOOD UREA NITROGEN 41 MG/DL (7-18); BUN/CREATININE RATIO 16.9 (6.6-38.0); CALCIUM 9.3 MG/DL (8.5-10.1); CHLORIDE 105 MMOL/L (99-107); CREATININE 2.43 MG/DL (0.40-0.90); GLUCOSE 108 MG/DL (70-104); POTASSIUM 4.1 MMOL/L (3.5-5.1); SODIUM 137 MMOL/L (135-145); TOTAL CARBON DIOXIDE 22.5 MMOL/L (24-32); TOTAL PROTEIN 6.6 G/DL (6.4-8.2); eGFR 19 ML/MIN
[2021-06-11] MEDS ORDERED: LISI20TA28 PO (12:59)
[2021-06-11] MEDS ORDERED: ATOR40TA14 PO (12:59)
[2021-06-11] MEDS ORDERED: CLOP75TA33 PO (12:59)
[2021-06-11] MEDS ORDERED: POTA10CA44 PO (12:59)
[2021-06-11] MEDS ORDERED: CYAN-34 PO (12:59)
[2021-06-11] MEDS ORDERED: CHOL100046 PO (12:59)
[2021-06-11] MEDS ORDERED: METO-384 PO (12:59)
[2021-06-11] MEDS ORDERED: QUET50TA24 PO (12:59)
[2021-06-11] MEDS ORDERED: FURO-150 PO (12:59)
[2021-06-11] MEDS ORDERED: DONE10TA7 PO (12:59)
[2021-06-11] MEDS ORDERED: SERT-433 PO (12:59)
[2021-06-11] MEDS ORDERED: CefTRIAXone/D5W-Rocephin 1gm 50 ML IV ONE (13:30)
[2021-06-11 13:42] LABS: CLARITY,URINE CLOUDY (Clear); COLOR,URINE YELLOW (Yellow); UA COLLECTION TYPE FOLEY CATH
[2021-06-11 13:43] LABS: GLUCOSE, URINE NEGATIVE (Neg); KETONES,URINE NEGATIVE (Neg); NITRITES, URINE NEGATIVE (Neg); OCCULT BLOOD,URINE SMALL (Neg); PROTEIN,URINE TRACE mg/dl (Neg)
[2021-06-11 13:44] LABS: LEUKOCYTE ESTERASE ,URINE MODERATE (Neg); UROBILINOGEN,URINE 0.2 E.U/dL (0.2-1.0)
[2021-06-11 13:46] LABS: BACTERIA,URINE 4+ /HPF (Neg); SQUAMOUS EPITHELIAL CELL,UR FEW /LPF (FEW)
[2021-06-11 13:49] LABS: WBC,URINE 20-30 /HPF (0-4)
--- NOTE | 2021-06-11 13:50 | NUR ---
UPDATED DR TOLEDO PT REMAINS HYPOTENSIVE. RECEIVED VO TO RUN NS AT 250ML FOR 2 HOURS. PT IS COMFORT CARE/DNR TX, NO EXCESSIVE MEASURES WILL BE PURSUED AT THIS TIME PER PT WILMA AND INSTUCTION
[2021-06-11] MEDS ORDERED: HYDROmorphone inj. 0.5 MG/0.5 ML DISP.SYRIN IV PRN (15:25)
[2021-06-11] MEDS ORDERED: morphine 2 MG/ML inj. syringe IV PRN ×2 (15:25)
[2021-06-11] MEDS ORDERED: HYDROcodone/acetaminophen 10/325mg tab PO PRN (15:25)
[2021-06-11] MEDS ORDERED: acetaminophen 650mg rectal suppository RC PRN (15:25)
[2021-06-11] MEDS ORDERED: magnesium hydroxide 30ml (MOM) UD suspension PO PRN (15:25)
[2021-06-11] MEDS ORDERED: magnesium 2GM in 50ml NS 50 ML IV PRN (15:25)
[2021-06-11] MEDS ORDERED: magnesium 4gm in 100ml NS 100 ML IV PRN (15:25)
[2021-06-11] MEDS ORDERED: diphenhydrAMINE 25mg capsule PO PRN (15:25)
[2021-06-11] MEDS ORDERED: magnesium Cl slow-release 64mg tablet PO PRN (15:25)
[2021-06-11] MEDS ORDERED: potassium Cl 40MEQ/1/2NS 520ml 520 ML IV PRN ×2 (15:25)
[2021-06-11] MEDS ORDERED: HYDROcodone/acetaminophen 5mg/325mg tablet PO PRN (15:25)
[2021-06-11] MEDS ORDERED: mag hydrox/Alum hydrox/simeth 30ml oral suspension PO PRN (15:25)
[2021-06-11] MEDS ORDERED: ondansetron/PF 4mg/2ml inj IV PRN (15:25)
[2021-06-11] MEDS ORDERED: bisacodyl 10mg suppository rectal RC PRN (15:25)
[2021-06-11] MEDS ORDERED: potassium Cl 20 mEq SR tablet PO PRN ×2 (15:25)
[2021-06-11] MEDS ORDERED: acetaminophen 325mg tablet PO PRN ×2 (15:25)
--- NOTE | 2021-06-11 15:30 | NUR ---
Conference call with and son Philippe, patient will be admitted and receive fluids and IV Rocephin, if patient does not show improvement then patient will be discharged back to [facility], spoke with Margo at [facility], states has hospice order and will initate hospice in facility, message sent to [facility] inquiring of openings, waiting for response
[2021-06-11] MEDS: normal saline 1000ml 1,000 ML IV SCH ×2 (16:00→22:50)
[2021-06-11] MEDS: K and/or MAG REPLACEMENT MC SCH (20:00)
[2021-06-11] MEDS: docusate sod 100mg capsule PO SCH (20:00)
[2021-06-11] MEDS ORDERED: temazepam 15mg capsule PO PRN (21:00)
[2021-06-11] MEDS: QUEtiapine 25mg tablet PO SCH (22:49)
[2021-06-11] MEDS: donepezil 5mg tablet PO SCH (22:49)
[2021-06-11] MEDS: atorvastatin 20mg tablet PO SCH (22:50)
[2021-06-12 04:05] LABS: BASOPHILS # (AUTO) 0.1 X10'3 (0-0.2); BASOPHILS % (AUTO) 1.2 % (0-1); EOSINOPHILS # (AUTO) 0.3 X10'3 (0-0.9); HEMATOCRIT 35.6 % (35.0-45.0); HEMOGLOBIN 11.5 g/dl (12.0-16.0); LYMPHOCYTES # (AUTO) 1.9 X10'3 (1.1-4.8); LYMPHOCYTES % (AUTO) 18.3 % (21-51); MEAN CORPUSCULAR HEMOGLOBIN 28.2 PG (27.0-31.0); MEAN CORPUSCULAR HGB CONC 32.2 g/dL (33.0-36.5); MEAN CORPUSCULAR VOLUME 87.4 FL (78-98); MEAN PLATELET VOLUME 9.8 FL (7.4-10.4); MONOCYTES # (AUTO) 1.1 X10'3 (0-0.9); MONOCYTES % (AUTO) 10.3 % (2-12); NEUTROPHILS # (AUTO) 7.1 X10'3 (1.8-7.7); NEUTROPHILS % (AUTO) 67.2 % (42-75); PLATELET COUNT 210 X10'3 (140-440); RED BLOOD COUNT 4.08 X10'6 (4.20-5.60); RED CELL DISTRIBUTION WIDTH 16.6 % (11.5-14.5); WHITE BLOOD COUNT 10.6 X10'3 (4.5-11.0)
[2021-06-12 04:12] LABS: ALANINE AMINOTRANSFERASE 17 U/L (12-78); ALBUMIN 2.8 G/DL (3.4-5.0); ALBUMIN/GLOBULIN RATIO 0.9 (1.1-1.5); ALKALINE PHOSPHATASE 93 IU/L (46-116); ANION GAP 13 (8-16); ASPARTATE AMINO TRANSFERASE 16 U/L (10-37); BILIRUBIN,TOTAL 0.5 MG/DL (0.1-1.0); BLOOD UREA NITROGEN 29 MG/DL (7-18); BUN/CREATININE RATIO 21.8 (6.6-38.0); CALCIUM 8.8 MG/DL (8.5-10.1); CHLORIDE 112 MMOL/L (99-107); CREATININE 1.33 MG/DL (0.40-0.90); GLUCOSE 79 MG/DL (70-104); MAGNESIUM 1.9 MG/DL (1.5-2.4); PHOSPHORUS 2.9 MG/DL (2.3-4.5); POTASSIUM 3.9 MMOL/L (3.5-5.1); SODIUM 147 MMOL/L (135-145); TOTAL CARBON DIOXIDE 22.1 MMOL/L (24-32); TOTAL PROTEIN 5.9 G/DL (6.4-8.2); eGFR 38 ML/MIN
--- NOTE | 2021-06-12 06:09 | NUR ---
PT TURNER EMPTIED, 2000 CC OF YELLOW FOUL URINE. PT HAS BEEN SLEEPING ALL NIGHT, RESPIRATIONS STAYED AROUND 16 UNLABORED.
[2021-06-12] MEDS: normal saline 1000ml 1,000 ML IV SCH ×3 (07:25→22:56)
--- NOTE | 2021-06-12 07:30 | NUR ---
Patient in room BRIJESH 349. I have received report from Rosalia LAKHANI and had the opportunity to ask questions and assume patient care.
[2021-06-12] MEDS: K and/or MAG REPLACEMENT MC SCH ×2 (08:00→20:00)
[2021-06-12] MEDS: docusate sod 100mg capsule PO SCH ×2 (08:00→21:36)
[2021-06-12 08:57] VITALS: BP 144/74
[2021-06-12] MEDS: QUEtiapine 25mg tablet PO SCH ×2 (10:24→21:35)
[2021-06-12] MEDS: cyanocobalamin 500mcg tablet PO SCH (10:25)
[2021-06-12] MEDS: levoTHYROXINE 75mcg tablet PO SCH (10:25)
[2021-06-12] MEDS: clopidogrel 75mg tablet PO SCH (10:25)
[2021-06-12] MEDS: sertraline 50mg tablet PO SCH (10:26)
--- NOTE | 2021-06-12 10:34 | NUR ---
Noted pt has been made DNR w/ comfort care per EMR. Will continue to follow. Rec: 1. bowel care per rx Addendum: 06/12/21 at [address] Amended: Links added.
[2021-06-12] MEDS: CefTRIAXone/D5W-Rocephin 1gm 50 ML IV SCH (11:50)
--- NOTE | 2021-06-12 18:56 | NUR ---
Problems reprioritized. Patient report given, questions answered & plan of care reviewed with Brittani LAKHANI.
[2021-06-12 20:00] VITALS: BP 149/61
[2021-06-12] MEDS: donepezil 5mg tablet PO SCH (21:35)
[2021-06-12] MEDS: atorvastatin 20mg tablet PO SCH (21:36)
[2021-06-12] MEDS: lactobacillus rhamnosus 10,000 MMU CELLS/CAPSULE PO SCH (21:36)
[2021-06-13 06:38] LABS: BASOPHILS # (AUTO) 0.1 X10'3 (0-0.2); BASOPHILS % (AUTO) 1.2 % (0-1); EOSINOPHILS # (AUTO) 0.2 X10'3 (0-0.9); EOSINOPHILS % (AUTO) 2.1 % (0-6); HEMATOCRIT 38.9 % (35.0-45.0); HEMOGLOBIN 12.4 g/dl (12.0-16.0); LYMPHOCYTES # (AUTO) 1.5 X10'3 (1.1-4.8); LYMPHOCYTES % (AUTO) 16.5 % (21-51); MEAN CORPUSCULAR HGB CONC 31.8 g/dL (33.0-36.5); MEAN PLATELET VOLUME 9.3 FL (7.4-10.4); MONOCYTES # (AUTO) 0.7 X10'3 (0-0.9); MONOCYTES % (AUTO) 7.7 % (2-12); NEUTROPHILS # (AUTO) 6.8 X10'3 (1.8-7.7); NEUTROPHILS % (AUTO) 72.5 % (42-75); PLATELET COUNT 218 X10'3 (140-440); RED BLOOD COUNT 4.42 X10'6 (4.20-5.60); RED CELL DISTRIBUTION WIDTH 16.8 % (11.5-14.5); WHITE BLOOD COUNT 9.3 X10'3 (4.5-11.0)
[2021-06-13 07:07] LABS: ALANINE AMINOTRANSFERASE 16 U/L (12-78); ALBUMIN 2.9 G/DL (3.4-5.0); ALBUMIN/GLOBULIN RATIO 0.9 (1.1-1.5); ALKALINE PHOSPHATASE 104 IU/L (46-116); ANION GAP 9 (8-16); ASPARTATE AMINO TRANSFERASE 19 U/L (10-37); BILIRUBIN,TOTAL 0.5 MG/DL (0.1-1.0); BLOOD UREA NITROGEN 15 MG/DL (7-18); CALCIUM 8.8 MG/DL (8.5-10.1); CHLORIDE 111 MMOL/L (99-107); CREATININE 0.94 MG/DL (0.40-0.90); GLUCOSE 72 MG/DL (70-104); MAGNESIUM 1.8 MG/DL (1.5-2.4); POTASSIUM 3.6 MMOL/L (3.5-5.1); SODIUM 143 MMOL/L (135-145); TOTAL CARBON DIOXIDE 22.7 MMOL/L (24-32); TOTAL PROTEIN 6.3 G/DL (6.4-8.2); eGFR 56 ML/MIN
[2021-06-13 07:15] VITALS: BP 137/74
[2021-06-13] MEDS: CefTRIAXone/D5W-Rocephin 1gm 50 ML IV SCH (07:37)
[2021-06-13] MEDS: clopidogrel 75mg tablet PO SCH (07:38)
[2021-06-13] MEDS: lactobacillus rhamnosus 10,000 MMU CELLS/CAPSULE PO SCH (07:38)
[2021-06-13] MEDS: docusate sod 100mg capsule PO SCH (07:38)
[2021-06-13] MEDS: levoTHYROXINE 75mcg tablet PO SCH (07:38)
[2021-06-13] MEDS: sertraline 50mg tablet PO SCH (07:38)
[2021-06-13] MEDS: cyanocobalamin 500mcg tablet PO SCH (07:39)
[2021-06-13] MEDS: QUEtiapine 25mg tablet PO SCH (07:39)
[2021-06-13] MEDS: normal saline 1000ml 1,000 ML IV SCH ×2 (07:39→15:25)
[2021-06-13] MEDS: K and/or MAG REPLACEMENT MC SCH (08:00)
[2021-06-13] MEDS ORDERED: CEFD300C3 PO (09:24)
[2021-06-13] MEDS ORDERED: LACT1CAP26 PO (09:24)
[2021-06-13 12:15] VITALS: BP 94/55
--- NOTE | 2021-06-13 15:00 | NUR ---
Problems reprioritized. Patient report given, questions answered & plan of care reviewed with Tia Tee RN. All questions answered. Awaiting [employer] for pick pulling machine tender @1500.
--- NOTE | 2021-06-13 15:48 | NUR ---
Patient stable and appropriate for transfer back to [facility], report called to receiving RN. All belongings taken from room, IV removed. New prescriptions e-scripted to patients preferred pharmacy. All discharge instructions given and reviewed with RN, all questions answered.
--- NOTE | 2021-06-13 15:51 | NUR ---
Student documentation: I have reviewed and agree with all interventions, assessments performed and documented by SN Nai. Student Medication Administration: For this medication-pass time frame, all medication were reviewed, dispensed, administered and documented per hospital policy by SN Nai.
== END 2021-06-13 15:46 | disposition hospice, home (50) | DRG 871 ==
LOC: ER 10:42 → ED HOLD 15:34 → SUR 3N 06-12 08:34
PROVIDERS: ADMIT Family Medicine; ATTEND Family Medicine
DX: A41.9 Sepsis, unspecified organism (principal); R65.21 Severe sepsis with septic shock; E43 Unspecified severe protein-calorie malnutrition; N39.0 Urinary tract infection, site not specified; E86.0 Dehydration; E78.00 Pure hypercholesterolemia, unspecified; Z51.5 Encounter for palliative care; Z66 Do not resuscitate; E78.5 Hyperlipidemia, unspecified; F03.90 Unspecified dementia, unspecified severity, without behavioral disturbance, psychotic disturbance, mood disturbance, and anxiety; I10 Essential (primary) hypertension; I25.10 Atherosclerotic heart disease of native coronary artery without angina pectoris; E07.9 Disorder of thyroid, unspecified; F32.9 Major depressive disorder, single episode, unspecified; R19.7 Diarrhea, unspecified; Z86.73 Personal history of transient ischemic attack (TIA), and cerebral infarction without residual deficits; Z68.25 Body mass index [BMI] 25.0-25.9, adult; Z79.02 Long term (current) use of antithrombotics/antiplatelets
CPT/HCPCS: 36415; 71045; 80053; 81001; 83605; 83735; 84100; 84484; 85025; 87040; 87077; 87081; 87088; 87186; 96361; 96365; 96366; 99285; G0378; J0696; J2270; J2405; J7030